=== PATIENT | male | born 2000 | race Two or more races ===

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

== ENCOUNTER 2025-06-05 15:03 | Emergency (ER) | payer BC, MEDICAID ==
[~2025-06-05] VITALS: Ht 167.6 cm; Wt 63.3 kg
[2025-06-05 15:07] VITALS: BP 101/61; PULSE 74; RESP 18; TEMP 97.8; O2SAT 100
[2025-06-05] MEDS ORDERED: HYDR-5192 EX (19:19)
--- NOTE | 2025-06-05 19:20 | ED.PDOC ---
GI ASSESSMENT HPI Comments 25-year-old male presents to the ED chief complaint tender lump on anus. Patient reports he noticed a lump on his anus the other day he is complaining of pain itchiness and burning. Reports recent job change sitting at the desk a lot he has had his started one week after. Denies gross blood in the toilet or on toilet paper, fever, nausea, vomiting, or abdominal pain. Chief Complaint: Abscess Time Seen by MD: 18:17 Reviewed Notes: Nurses Notes, Medications, Allergies Allergies: Coded Allergies: NO KNOWN ALLERGIES (Unverified , 06/07/18) Home Meds Active Scripts Hydrocortisone (Topical) (Preparation H) 1 % Cre, 1 % EX BID PRN for 5 Days, #15 GRAMS Prov:RAJ GARCIA BANQUET PREP COOK 06/05/25 Information Source: Patient Mode of Arrival: Ambulatory Past Medical History PAST MEDICAL HISTORY: Denies Surgical History: Denies all surgeries Family History Family History: Unknown Social History Smoker: Non-Smoker Alcohol: Denies ETOH Use Drugs: Marijuana All Other Systems: Reviewed and Negative (See HPI) Physical Exam General Appearance: No Apparent Distress, Normal HEENT: Pharynx Normal Neck: Full Range of Motion, Non-Tender Respiratory: Lungs Clear, No Respiratory Distress, Normal Breath Sounds Cardiovascular: No Murmur, Normal Peripheral Pulses, Regular Rate/Rhythm Breast Exam: Deferred Gastrointestinal: No Organomegaly, Non Tender, No Pulsatile Mass, Normal Bowel Sounds, Soft Genitalia: Deferred Pelvic: Deferred Rectal: Hemorrhoids (External tender on touch no noted bleeding) Extremities: Normal capillary refill, Normal range of motion, Non-tender Musculoskeletal : Apperance: Normal Neurologic: Alert, No Motor Deficits, Normal Affect, Normal Mood, No Sensory Deficits Cerebellar Function: Normal Reflexes: NOT DONE Skin: Dry, Normal Color, Warm Lymphatic: No Adenopathy Was a procedure done? Was a procedure done?: No GI differential Dx Differential Diagnosis: Bowel Obstruction, Constipation, Gastritis/PUD, GI hemorrhage, Hernia, Impaction X-Ray, Labs, Meds, VS Vital Signs Date Time Temp Pulse Resp B/P (MAP) Pulse Ox O2 Delivery O2 Flow Rate FiO2 06/05/25 15:07 97.8 74 18 101/61 100 97.8 X-Ray, Labs, Meds, VS Comment Script trial of preparation H. advised to alternate between sitting and standing advised to increase his diet and fluids, and vegetables and fiber. Follow up with his PCP in 2-3 days as necessary ER return precautions given patient ind icates understanding agrees with discharge plan of care Time of 1ST Reevaluation: 18:17 Reevaluation 1ST: Unchanged Time of 2ND Reevaluation: 19:14 Reevaluation 2ND: Improved Patient Education/Counseling: Diagnosis, Treatment, Need For Follow Up Family Education/Counseling: No Family Present SEPSIS Sepsis Screen Date sepsis recognized/suspect: Jun 05, 2025 Time Sepsis recognized/suspect: 1509 Recent Procedure: No On Antibiotic Therapy: No Respiratory Rate >20: No Heart Rate >90: No Temp<36 C (96.8 F) or >38.3 C: No SBP <90 or MAP <65 mmHG: No New Acute Mental Status Change: No Is the patient on CPAP, BIPAP,: No Vital Signs Date Time Temp Pulse Resp B/P (MAP) Pulse Ox O2 Delivery O2 Flow Rate FiO2 06/05/25 15:07 97.8 74 18 101/61 100 97.8 Departure 1 Departure Time of Disposition: 19:16 Impression: Primary Impression: Internal hemorrhoids without complication Disposition: 01 HOME / SELF CARE / HOMELESS Condition: Stable e-Prescriptions Hydrocortisone (Topical) (Preparation H) 1 % Cre 1 % EX BID PRN for 5 Days, #15 GRAMS Prov: RJA GARCIA 06/05/25 Discharged With: Self Critical Care Note Critical Care Time?: No Stability Stability form required: RAJ Caldera Jun 05, 2025 19:20
== END 2025-06-05 19:23 | disposition home or self-care (01) ==
LOC: ER 15:03
DX: K64.8 Other hemorrhoids (principal)